=== PATIENT | male | born 1990 | race Two or more races ===

== ENCOUNTER 2022-07-11 03:00 | Emergency (ER) | payer MEDICAID ==
[~2022-07-11] VITALS: Ht 177.8 cm; Wt 90.7 kg
[~2022-07-11 03:00] MED LIST: AMPICILLIN PO; LOPE2CAP PO; OMEP20CA15 PO
[2022-07-11 03:06] VITALS: BP 134/85
--- NOTE | 2022-07-11 03:40 | NUR ---
PT DID NOT WANT TO BE SEEN BY THE MD AFTER HE SAW HIS VITAL SIGNS. PT DID APPEAR TO BE ANXIOUS. PT DENIES ANY CHEST PAIN NOR ANY OTHER SYMPTOMS.
== END 2022-07-11 03:41 | disposition left against medical advice (07) ==
LOC: ER 03:01
DX: Z53.21 Procedure and treatment not carried out due to patient leaving prior to being seen by health care provider (principal)

== ENCOUNTER 2023-03-11 01:19 | Emergency (ER) | payer MEDICAID ==
[~2023-03-11] VITALS: Ht 180.3 cm; Wt 93.0 kg
[2023-03-11 01:59] VITALS: BP 125/85; TEMP 97
[2023-03-11] MEDS ORDERED: DOXY100C2 PO (03:37)
[2023-03-11] MEDS ORDERED: LIDOCAINE /MPF 1% VIAL 5 ML VIAL ONE (03:41)
[2023-03-11] MEDS ORDERED: CEFTRIAXONE 500 MG VIAL ONE (03:41)
[2023-03-11 03:47] VITALS: O2SAT 98
[2023-03-11] MEDS ORDERED: CEFTRIAXONE 500 MG VIAL IM ONE (04:00)
[2023-03-13 08:06] LABS: CHLAMYDIA TRACHOMATIS NAA Negative (Negative); NEISSERIA GONORRHOEAE NAA Negative (Negative)
== END 2023-03-11 03:48 | disposition home or self-care (01) ==
LOC: ER 01:22
DX: A64 Unspecified sexually transmitted disease (principal); E03.9 Hypothyroidism, unspecified; Z88.0 Allergy status to penicillin; Z60.2 Problems related to living alone
CPT/HCPCS: 99283; 96372; 87491; 87591; J0696; J3490

== ENCOUNTER 2023-03-12 14:02 | Emergency (ER) | payer MEDICAID ==
[~2023-03-12 14:02] MED LIST changes: +DOXY100C2 PO
== END 2023-03-12 15:45 | disposition left against medical advice (07) ==
LOC: ER 14:08
DX: Z53.21 Procedure and treatment not carried out due to patient leaving prior to being seen by health care provider (principal)

== ENCOUNTER 2023-08-24 00:02 | Emergency (ER) | payer MEDICAID, OTHER ==
[~2023-08-24] VITALS: Ht 180.3 cm; Wt 93.0 kg
[2023-08-24 00:56] LABS: BASOPHILS # (AUTO) 0.1 K/uL (0.0-0.2); BASOPHILS % (AUTO) 1.1 % (0.0-2.0); EOSINOPHILS # (AUTO) 0.1 K/uL (0.0-0.7); EOSINOPHILS % (AUTO) 1.3 % (0.0-6.0); HEMATOCRIT 42 % (39-51); HEMOGLOBIN 14.2 g/dL (13.5-17.5); LYMPHOCYTES # (AUTO) 1.6 K/uL (0.8-4.8); MEAN CORPUSCULAR HEMOGLOBIN 29 PG (26.0-33.0); MEAN CORPUSCULAR HGB CONC 34 g/dl (31.0-36.0); MEAN CORPUSCULAR VOLUME 87 fL (80-96); MONOCYTES # (AUTO) 0.5 K/uL (0.1-1.30); MONOCYTES % (AUTO) 6.7 % (2.0-12.0); NEUTROPHILS # (AUTO) 5.4 K/uL (1.8-8.9); NEUTROPHILS % (AUTO) 69.9 % (43.0-81.0); PLATELET COUNT (AUTO) 249 K/uL (150-450); RED BLOOD CELL COUNT(AUTO) 4.88 MIL/uL (4.5-6.0); RED CELL DISTRIBUTION WIDTH 13.8 % (11.5-15.0); WHITE BLOOD COUNT (AUTO) 7.8 K/uL (4.3-11.0)
[2023-08-24 01:14] LABS: CALCIUM, SERUM 8.8 mg/dL (8.5-10.1); CREATININE 0.8 mg/dL (0.6-1.3); POTASSIUM 3.9 mmol/L (3.5-5.1)
[2023-08-24 01:20] LABS: ALBUMIN 3.8 g/dL (3.4-5.0); BILIRUBIN,TOTAL 0.3 mg/dL (0.2-1.0)
[2023-08-24 01:41] VITALS: BP 145/90; TEMP 98.9; O2SAT 100
== END 2023-08-24 01:42 | disposition home or self-care (01) ==
LOC: ER 00:04
DX: R09.1 Pleurisy (principal); E03.9 Hypothyroidism, unspecified; Z88.0 Allergy status to penicillin; Z60.2 Problems related to living alone; Z79.899 Other long term (current) drug therapy
CPT/HCPCS: 36415; 71045-TC; 80053-TC; 83880; 84484-TC; 85025-TC; 85378-TC